=== PATIENT | male | born 1985 | race Caucasian/White ===

== ENCOUNTER 2021-02-24 14:00 | Emergency (ER) | payer SELFPAY ==
[~2021-02-24] VITALS: Ht 162.6 cm; Wt 81.6 kg
[2021-02-24 14:01] VITALS: BP 167/82
--- NOTE | 2021-02-24 14:18 | NUR ---
EKG AT TRIAGE ROOM
--- NOTE | 2021-02-24 14:20 | NUR ---
WAIT AT LOBBY. HANDED ON URINE CUP.
--- NOTE | 2021-02-24 14:21 | NUR ---
C/O 8/10 LEFT CHEST PAIN , N/V X 30 MINS AGO. BP 167/82 AT THIS TIME. PMH: COVIDD TESTED POSITIVE JUN 2020, HLD
[2021-02-24 14:51] LABS: BASOPHILS # (AUTO) 0.1 K/uL (0.00-0.22); BASOPHILS % (AUTO) 1.4 % (0.0-2.0); EOSINOPHILS % (AUTO) 0.4 % (0.0-4.0); HEMATOCRIT 43.6 % (36-52); HEMOGLOBIN 14.7 g/dL (12.0-18.0); LYMPHOCYTES # (AUTO) 1.9 K/uL (2.0-11.5); LYMPHOCYTES % (AUTO) 30.6 % (20.5-51.1); MEAN CORPUSCULAR HEMOGLOBIN 30 pg (27-31); MEAN CORPUSCULAR HGB CONC 34 g/dL (33-37); MEAN CORPUSCULAR VOLUME 89.2 fL (80-94); MONOCYTES # (AUTO) 0.4 K/uL (0.8-1.0); NEUTROPHILS # (AUTO) 3.8 K/uL (1.8-7.7); NEUTROPHILS % (AUTO) 60.6 % (42.2-75.2); PLATELET COUNT (AUTO) 246 K/uL (140-450); RED BLOOD CELL COUNT(AUTO) 4.89 MIL/uL (4.20-6.10); RED CELL DISTRIBUTION WIDTH 14.3 % (11.6-13.7); WHITE BLOOD COUNT (AUTO) 6.3 K/uL (4.8-10.8)
[2021-02-24 15:07] LABS: ALBUMIN 3.5 g/dL (3.4-5.0); ANION GAP 16.6 (8-16); CARBON DIOXIDE 23.1 mmol/L (21-32); CREATININE 1.1 mg/dL (0.6-1.3); POTASSIUM 3.7 mmol/L (3.5-5.1); TOTAL BILIRUBIN 0.3 mg/dL (0.0-1.0)
--- NOTE | 2021-02-24 15:40 | NUR ---
CALLED FOR PT IN LOBBY/TENT, UNABLE TO FIND PT. WILL ATTEMPT AGAIN IN FUTURE
--- NOTE | 2021-02-24 15:55 | NUR ---
CALLED FOR PT IN LOBBY/TENT FOR SECOND TIME, UNABLE TO FIND PT. WILL ATTEMPT AGAIN.
--- NOTE | 2021-02-24 16:05 | NUR ---
CALLED FOR PT IN LOBBY/TENT FOR THIRD TIME, UNABLE TO FIND PT. WILL ATTEMPT AGAIN.
== END 2021-02-24 15:40 | disposition left against medical advice (07) ==
LOC: MED 14:00
DX: Z53.21 Procedure and treatment not carried out due to patient leaving prior to being seen by health care provider (principal)
CPT/HCPCS: 36415; 71045; 80053; 83690; 83880; 84484; 85025; 93005; 99281; Q0092